=== PATIENT | male | born 1950 | race American Indian/Alaskan Native ===

== ENCOUNTER 2021-12-31 12:33 | Emergency (ER) | payer SELFPAY ==
[2021-12-31 12:36] VITALS: BP 156/98
== END 2021-12-31 18:00 | disposition left against medical advice (07) ==
LOC: ED 12:33
DX: K59.00 Constipation, unspecified (principal); Z53.21 Procedure and treatment not carried out due to patient leaving prior to being seen by health care provider

== ENCOUNTER 2022-01-02 17:50 | Emergency (ER) | payer OTHER ==
--- NOTE | 2022-01-02 18:35 | XRay Report ---
CHEST 2 VIEWS INDICATION / CLINICAL INFORMATION: chest pain. COMPARISON: None available. FINDINGS: SUPPORT DEVICES: None. HEART / MEDIASTINUM: No significant abnormality. LUNGS / PLEURA: There is biapical scarring. The lungs are otherwise clear. No significant pleural eff usion. No pneumothorax. ADDITIONAL FINDINGS: No significant additional findings. IMPRESSION: 1. No acute abnormality of the chest. Signer Name: Benito Hester MD Signed: 01/02/2022 6:31 PM Workstation Name: [id number]
[2022-01-03 09:55] LABS: Alanine Aminotransferase 24 units/L (7-56); BUN/Creatinine Ratio 12; Blood Urea Nitrogen 12 mg/dL (9-20); Calcium 10.1 mg/dL (8.4-10.2); Hemolysis Index 4
[2022-01-03 10:10] VITALS: BP 152/86
--- NOTE | 2022-01-03 11:13 | Electrocardiograph Report ---
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
--- NOTE | 2022-01-03 11:25 | Electrocardiograph Report ---
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
--- NOTE | 2022-01-03 11:53 | Emergency Department Report ---
ED Chest Pain HPI - General Chief Complaint: Chest Pain Stated Complaint: CHEST TIGHTNESS/DIZZINESS Time Seen by Provider: 01/03/22 08:53 Source: patient Mode of arrival: Ambulatory Limitations: No Limitations - History of Present Illness Initial Comments: 71-year-old male with a past medical history of crack cocaine abuse, hyperlipidemia, hypertension, and HIV with undetectable viral load presents to the hospital complaints of intermittent moderate chest tightness for the last 3 days. No aggravating alleviating factors reported. Positive associated shortness of breath. Patient states symptoms likely started after crack cocaine use. He denies calf tenderness, leg edema, or diaphoresis. Denies personal history or family history of CAD and denies previous stress testing Severity scale (0 -10): 4 - Related Data Allergies Allergy/AdvReac Type Severity Reaction Status Date / Time No Known Allergies Allergy Verified 12/31/21 12:34 Heart Score - HEART Score History: Slightly suspicious EKG: Normal Age: > 65 Risk factors: > 3 risk factors or hx of atherosclerotic disease Troponin: < normal limit HEART Score: 4 - EKG Read Time Time EKG Completed: 10:18 EKG Read Time: 10:22 ED Review of Systems ROS: Stated complaint: CHEST TIGHTNESS/DIZZINESS Other details as noted in HPI Comment: All other systems reviewed and negative ED Past Medical Hx - Past Medical History Hx Hypertension: Yes Hx HIV: Yes Additional medical history: crack cocaine abuse ,hyperlipidemia - Social History Smoking Status: Current Some Day Smoker Substance Use Type: Cocaine ED Physical Exam - General Limitations: No Limitations - Other Other exam information: General: No acute distress Head: Atraumatic Eyes: normal appearance ENT: Moist mucous membranes Neck: Normal appearance, no midline tenderness Chest: Clear to auscultation bilaterally CV: Regular rate and rhythm Abdomen: Soft, normal bowel sounds, nontender, nondistended, no rebound or guarding Back: Normal inspection Extremity: Normal inspection, full range of motion, no calf tenderness or leg edema Neuro: Alert O x 3, no facial asymmetry, speech clear, no gross motor sensory deficit Psych: Appropriate behavior Skin: No rash ED Course Vital Signs 01/02/22 01/03/22 01/03/22 18:02 08:34 08:38 Temperature 98.9 F Pulse Rate 54 L 43 L 48 L Respiratory 17 13 17 Rate Blood Pressure Blood Pressure 169/81 169/65 [Right] O2 Sat by Pulse 100 100 99 Oximetry 01/03/22 01/03/22 01/03/22 08:45 09:00 09:15 Temperature Pulse Rate 41 L 41 L 42 L Respiratory 12 13 11 L Rate Blood Pressure 159/89 153/81 156/85 Blood Pressure [Right] O2 Sat by Pulse 100 100 100 Oximetry 01/03/22 01/03/22 01/03/22 09:30 09:45 10:00 Temperature Pulse Rate 43 L 42 L 42 L Respiratory 12 13 12 Rate Blood Pressure 144/80 151/84 152/86 Blood Pressure [Right] O2 Sat by Pulse 100 100 100 Oximetry 01/03/22 10:26 Temperature Pulse Rate Respiratory 18 Rate Blood Pressure Blood Pressure [Right] O2 Sat by Pulse 99 Oximetry ODIN score - Odin Score Age > 65: (1) Yes Aspirin use within the Past 7 Days: (0) No 3 or more CAD Risk Factors: (1) Yes 2 or more Angina events in past 24 hrs: (1) Yes Known CAD with more than 50% Stenosis: (0) No Elevated Cardiac Markers: (0) No ST Deviation Greater than 0.5mm: (0) No ODIN Score: 3 ED Medical Decision Making - Lab Data Result diagrams: 01/03/22 10:54 01/03/22 09:08 Lab Results 01/03/22 01/03/22 01/03/22 Range/Units 09:08 10:54 10:54 WBC 5.1 (4.5-11.0) K/mm3 RBC 4.33 (3.65-5.03) M/mm3 Hgb 12.4 (11.8-15.2) gm/dl Hct 38.6 (35.5-45.6) % MCV 89 (84-94) fl MCH 29 (28-32) pg MCHC 32 (32-34) % RDW 14.9 (13.2-15.2) % Plt Count 302 (140-440) K/mm3 Lymph % (Auto) 35.8 H (13.4-35.0) % [place] % (Auto) 7.5 H (0.0-7.3) % Eos % (Auto) 0.9 (0.0-4.3) % Baso % (Auto) 0.9 (0.0-1.8) % Lymph # (Auto) 1.8 (1.2-5.4) K/mm3 [place] # (Auto) 0.4 (0.0-0.8) K/mm3 Eos # (Auto) 0.0 (0.0-0.4) K/mm3 Baso # (Auto) 0.0 (0.0-0.1) K/mm3 Seg Neutrophils % 54.9 (40.0-70.0) % Seg Neutrophils # 2.8 (1.8-7.7) K/mm3 Sodium 142 (137-145) mmol/L Potassium 4.4 (3.6-5.0) mmol/L Chloride 106.9 (98-107) mmol/L Carbon Dioxide 28 (22-30) mmol/L Anion Gap 12 mmol/L BUN 12 (9-20) mg/dL Creatinine 1.0 (0.8-1.3) mg/dL Estimated GFR > 60 ml/min BUN/Creatinine Ratio 12 % Glucose 88 (75-100) mg/dL Calcium 10.1 (8.4-10.2) mg/dL Total Bilirubin < 0.20 (0.1-1.2) mg/dL AST 27 (5-40) units/L ALT 24 (7-56) units/L Alkaline Phosphatase 99 (35-129) units/L Troponin T < 0.010 < 0.010 (0.00-0.029) ng/mL Total Protein 6.2 L (6.3-8.2) g/dL Albumin 4.0 (3.9-5) g/dL Albumin/Globulin Ratio 1.8 % - EKG Data -: EKG Interpreted by [facility] EKG shows normal: ST-T waves (No STEMI) Rate: bradycardia (45) - Radiology Data Radiology results: report reviewed CHEST 2 VIEWS INDICATION / CLINICAL INFORMATION: chest pain. COMPARISON: None available. FINDINGS: SUPPORT DEVICES: None. HEART / MEDIASTINUM: No significant abnormality. LUNGS / PLEURA: There is biapical scarring. The lungs are otherwise clear. No significant pleural effusion. No pneumothorax. ADDITIONAL FINDINGS: No significant additional findings. IMPRESSION: 1. No acute abnormality of the chest. - Medical Decision Making 71-year-old male with intermittent chest pain for several days after crack cocaine use. Previous of cardiac risk factors. Heart score 4. Plan to admit for cardiac work-up since patient denies previous stress testing or cardiac cath. Patient initially seemed agreeable to admission however, eloped from the department after being fed CBC was received and pending at time of elopement results reviewed and normal range. Critical Care Time: No Critical care attestation.: If time is entered above; I have spent that time in minutes in the direct care of this critically ill patient, excluding procedure time. ED Disposition Clinical Impression: Chest pain, Crack cocaine use Disposition: 07 LEFT AWOL/ELOPED Is pt being admited?: No Condition: Stable Time of Disposition: 11:53 (eloped)
[2022-01-03 12:27] LABS: Basophils % (Auto) 0.9 % (0.0-1.8); Eosinophils % (Auto) 0.9 % (0.0-4.3); Hematocrit 38.6 % (35.5-45.6); Hemoglobin 12.4 gm/dl (11.8-15.2); Lymphocytes # (Auto) 1.8 K/mm3 (1.2-5.4); Lymphocytes % (Auto) 35.8 % (13.4-35.0); Mean Corpuscular HGB Conc 32 % (32-34); Mean Corpuscular Volume 89 fl (84-94); Monocytes # (Auto) 0.4 K/mm3 (0.0-0.8); Monocytes % (Auto) 7.5 % (0.0-7.3); Platelet Count 302 K/mm3 (140-440); Red Blood Count 4.33 M/mm3 (3.65-5.03); Red Cell Distribution Width 14.9 % (13.2-15.2)
[2022-01-03 12:44] LABS: INR 0.92 (0.87-1.13)
[2022-01-03 12:46] LABS: Partial Thromboplastin Time 32.2 Sec. (24.2-36.6)
== END 2022-01-03 12:01 | disposition left against medical advice (07) ==
LOC: ED 17:50
DX: R07.9 Chest pain, unspecified (principal); F14.90 Cocaine use, unspecified, uncomplicated; I10 Essential (primary) hypertension; Z21 Asymptomatic human immunodeficiency virus [HIV] infection status; F17.200 Nicotine dependence, unspecified, uncomplicated
CPT/HCPCS: 36415; 71046; 80048; 80053; 84484; 85025; 85610; 85730; 93005; 99283